=== PATIENT | female | born 1995 | race African-American/Black ===

== ENCOUNTER 2018-12-31 10:37 | Emergency (ER) | payer OTHER | END 2018-12-31 11:22 | disposition home or self-care (01) | LOC: ERS 10:37 | DX: M54.5 Low back pain (principal) | CPT/HCPCS: 99283 ==

== ENCOUNTER 2019-01-08 12:26 | Outpatient (CLI) | payer OTHER ==
--- NOTE | 2019-01-08 14:45 | RAD ---
SUPINE ABDOMEN: HISTORY: Back pain and hematuria. FINDINGS: Scattered stool and gas throughout the colon. Bowel gas pattern unremarkable. No abnormal calcifica tion identified. An IUD overlies the mid pelvis. IMPRESSION: No abnormal calcification identified. POS: [facility]
--- NOTE | 2019-01-08 14:47 | RAD ---
LUMBAR SPINE SERIES 2 VIEWS: HISTORY: Acute back pain, more right-sided. Minimal scoliotic change of the spine convex to the left. The vertebral bodies are normal in height. There appear to be some small osteophytes at the L5-S1 level. Questionable disk narrowing. It is difficult to assess without a spot lateral view. IMPRESSION: 1. Questionable minimal disk narrowing at L5-S1. 2. Incidental note is made of an Intrauterine device. 3. Minimal scoliosis convex to the left. POS: [facility]
== END 2019-01-08 12:27 | disposition home or self-care (01) ==
LOC: BICRAD 12:26
PROVIDERS: ATTEND Family Medicine
DX: M54.9 Dorsalgia, unspecified (principal); R31.9 Hematuria, unspecified; M41.9 Scoliosis, unspecified
CPT/HCPCS: 72100; 74018

== ENCOUNTER 2021-03-22 21:10 | Emergency (ER) | payer OTHER ==
[2021-03-22 21:40] LABS: #Basophils 0.1 thou/uL (0.0-0.2); #Eosinphils 0.1 thou/uL (0.0-0.7); #Lymphocytes 2.6 thou/uL (1.20-3.40); #Monocytes 0.6 thou/uL (0.11-0.59); #Neutrophils 3.2 thou/uL (1.40-6.50); %Basophils 1.2 % (0.0-1.0); %Eosinophils 1.7 % (0.0-10.0); %Lymphocytes 39.8 % (21.0-51.0); %Monocytes 8.4 % (0.0-10.0); %Neutrophils 48.9 % (42.0-75.0); Hemoglobin 11.7 g/dL (12.0-16.0); Mean Corpuscular Hemoglobin 31.4 pg (27.0-31.0); Mean Corpuscular Volume 92.4 fL (78.0-98.0); Mean Platelet Volume 7.7 fL (7.4-10.4); Platelet Count 257 thou/uL (130-400); RBC Distribution Width 11.6 % (11.5-14.5); Red Blood Cell (RBC) Count 3.71 mill/uL (4.20-5.40); White Blood Cell (WBC) Count 6.6 thou/uL (4.8-10.8)
[2021-03-22 21:58] LABS: Anion Gap 13 mmol/L (10-20); BUN (Urea Nitrogen) 9 mg/dL (7.0-18.7); Calc. Creatinine Clearance 0 mL/min (70-130); Calcium 9.2 mg/dL (7.8-10.44); Carbon Dioxide 25 mmol/L (22-29); Chloride 104 mmol/L (98-107); Glucose 96 mg/dL (70-105); Potassium 3.9 mmol/L (3.5-5.1); Sodium 138 mmol/L (136-145)
[2021-03-22 22:21] LABS: Bilirubin Negative (Negative); Blood, Urine Negative (Negative); Clarity Clear (Clear); Glucose, Urine (Dipstick) Normal (Negative); Ketone, Urine Negative (Negative); Leukocyte Negative Leu/uL (Negative); Nitrite Negative (Negative); Protein, Urine (Dipstick) Negative (Neg-Trace); Specific Gravity, Urine 1.025 (1.002-1.036); Urobilinogen 3 mg/dL (Less than 2); pH, Urine 6.5 (5.0-9.0)
[2021-03-22 22:23] LABS: Pregnancy Test - Urine (BHCG) POSITIVE (Negative)
[2021-03-22 22:24] LABS: Pregu Control Background? CLEAR/WHITE (CLR/WHITE); Pregu Control Bar Appear? YES (CONTROL BAR); Specific Gravity 1.025 (1.002-1.036)
== END 2021-03-23 01:17 | disposition home or self-care (01) ==
LOC: ERS 21:10
DX: O99.891 Other specified diseases and conditions complicating pregnancy (principal); R10.30 Lower abdominal pain, unspecified
CPT/HCPCS: 36415; 76856; 80048; 81003; 81025; 84702; 85025